=== PATIENT | female | born 2005 | race Caucasian/White ===

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

== ENCOUNTER 2024-06-22 06:08 | Emergency (ER) | payer OTHER, SELFPAY ==
--- NOTE | ~2024-06-22 | XR_ITS ---
Clinical Indication: Cough PA and lateral views of the chest: Comparison: None Findings: The lungs are clear, without evidence of focal consolidation or pleural effusion. Cardiome diastinal silhouette is within normal limits. Bones and soft tissues are unremarkable. Impression: Normal chest. Reviewed, dictated and finalized at location . NCIAL SERVICES OFFICER Impression: Normal chest.
--- OUTSIDE RECORDS SUMMARY | 2024-06-22 06:10 | XMS_ITS | Clinical Summary ---
Author Organization [facility] [employer] Address [address] [place] [address] Care Team Providers Care Watch Dial Maker Name Role Phone Snow Summers MD Unavailable Fatemeh Medina MD Primary Care Provider [phone] Source Comments [facility] [employer],non-owned Affiliates and Associated Physician Practices is amultiple site organization consisting of ambulatory clinics and hospital sitesin [place], [place], [place] and [place]. This disclosure is being madepursuant to the Care Everywhere program and may not contain all information available regarding this patient. Last updated 18.[facility] [employer] Allergies No known active allergies Medications Be aware that medications may not be up to date on this document. Always verify current medications with the patient. No known medications Active Problems No known active problems Social History Tobacco Use Types Packs/Day Years Used Date Smoking Tobacco: Never Assessed Sex and Gender Information Value Date Recorded Sex Assigned at Not on file Gender Identity Not on file Sexual Orientation Not on file Last Filed Vital Signs Vital Sign Reading Time Taken Comments Blood Pressure 98/60 06/17/2020 10:06 AM SENIOR APPLICATION SOFTWARE ENGINEER Pulse 98 06/17/2020 10:06 AM SENIOR APPLICATION SOFTWARE ENGINEER Temperature 36.9 ??C (98.4 ??F) 06/17/2020 10:[address] Respiratory Rate 16 06/17/2020 10:06 AM SENIOR APPLICATION SOFTWARE ENGINEER Oxygen Saturation 100% 06/17/2020 10:06 AM SENIOR APPLICATION SOFTWARE ENGINEER Inhaled Oxygen Concentration - - Weight 53.5 kg (118 lb) 06/17/2020 10:06 AM SENIOR APPLICATION SOFTWARE ENGINEER Height 165.1 cm (5' 5 ) 06/17/2020 10:06 AM SENIOR APPLICATION SOFTWARE ENGINEER Body Mass Index 19.64 06/17/2020 10:06 AM SENIOR APPLICATION SOFTWARE ENGINEER Body Mass Index Percentile 40.51% 06/17/2020 10: 06 AM SENIOR APPLICATION SOFTWARE ENGINEER Growth Chart: CDC (Girls, 2- 20 Years) Plan of Treatment Upcoming Encounters Date Type Department Care Team (Deana st Contact Info) Description 07/08/2024 8:20 AM SENIOR APPLICATION SOFTWARE ENGINEER Office Visit [facility] - Pediatrics [address] [place] [address] Fatemeh Medina MD [address] [facility] [facility] [address] [place] [address] Health Maintenance Due Date Last Done Comments HIV SCREENING 08/31/2019 HPV VACCINE (1 - 3-dose series) 08/31/2019 CHLAMYDIA/GONORRHEA SCREENING 2020 MENINGOCOCCAL (Group B) VACC INE (1 of 2 - Standard) 2020 HEPATITIS C SCREENING 08/26/2022 DTAP/TDAP/TD VACCINES (1 - Tdap) 08/31/2023 HEPATITIS B VACCINE (1 of 3 - 19+ 3-dose series) 08/31/2023 COVID-19 VACCINE (1 - 2023-2 5 season) 2024 INFLUENZA VACCINE (#1) 2024 DEPRESSION SCREENING 05/20/2024 ZOSTER VACCINE (1 of 2) 2054 HIB VACCINE Aged Out No longer eligi ble based on patient's age to complete this topic MENINGOCOCCAL VACCINE Aged Out No howard juan diego eligible based on patient's age to complete this topic PNEUMOCOCCAL VACCINE Aged Out No long er eligible based on patient's age to complete this topic Care Teams Watch Dial Maker Relationship Specialty Start Date End Date Snow Summers MD PCP - Pediatrics 05/05/09 Fatemeh Medina MD PCP - General Pediatrics 11/19/13
--- OUTSIDE RECORDS SUMMARY | 2024-06-22 06:10 | XMS_ITS | Referral Summary ---
Author Organization [facility] [employer] Address [address] [place] [address] Care Team Providers Care Event Producer Name Role Phone Snow Summers MD Unavailable Fatemeh Medina MD Primary Care Provider [phone] Source Comments [facility],non-owned Affiliates and Associated Physician Practices is amultiple site organization consisting of ambulatory clinics and hospital sitesin [place], [place], [place] and [place]. This disclosure is being madepursuant to the Care Everywhere program and may not contain all information available regarding this patient. Last updated 18.[facility] Allergies No known active allergies Medications Be [...] Comments Blood Pressure 98/60 06/17/2020 10:06 AM ASSEMBLY LINE INSPECTOR Pulse 98 06/17/2020 10:06 AM ASSEMBLY LINE INSPECTOR Temperature 36.9 ??C (98.4 ??F) 06/17/2020 10:[address] Respiratory Rate 16 06/17/2020 10:06 AM ASSEMBLY LINE INSPECTOR Oxygen Saturation 100% 06/17/2020 10:06 AM ASSEMBLY LINE INSPECTOR Inhaled Oxygen Concentration - - Weight 53.5 kg (118 lb) 06/17/2020 10:06 AM ASSEMBLY LINE INSPECTOR Height 165.1 cm (5' 5 ) 06/17/2020 10:06 AM ASSEMBLY LINE INSPECTOR Body Mass Index 19.64 06/17/2020 10:06 AM ASSEMBLY LINE INSPECTOR Body Mass Index Percentile 40.51% 06/17/2020 10: 06 AM ASSEMBLY LINE INSPECTOR Growth Chart: CDC (Girls, 2- 20 Years) Plan of Treatment Upcoming Encounters Date Type Department Care Team (Late st Contact Info) Description 07/08/2024 8:20 AM ASSEMBLY LINE INSPECTOR Office Visit [facility] - Pediatrics [address] [place] [address] Fatemeh Medina MD [address] [facility] [address] [place] [address] Care Teams Event Producer Relationship Specialty Start Date End Date Snow Summers MD PCP - Pediatrics 05/05/09 Fatemeh Medina MD PCP - General Pediatrics 11/19/13
--- OUTSIDE RECORDS SUMMARY | 2024-06-22 06:10 | XMS_ITS | Patient Health Summary ---
Author Organization [facility] Address [address] [place] [address] Care Team Providers Care Dispatch Officer Name Role Phone Snow Summers MD Unavailable Fatemeh Medina MD Primary Care Provider Note from [facility],non-owned Affiliates and Associated Physician Practices is amultiple site organization consisting of ambulatory clinics and hospital sitesin [place], [place], [place] and [place]. This disclosure is being madepursuant to the Care Everywhere program and may not contain all information available regarding this patient. Last updated 18.[facility] [employer] Allergies No known active allergies Medications Be [...] Comments Blood Pressure 98/60 06/17/2020 10:06 AM MANAGER INVENTORY CONTROL Pulse 98 06/17/2020 10:06 AM MANAGER INVENTORY CONTROL Temperature 36.9 ??C (98.4 ??F) 06/17/2020 10:[address] Respiratory Rate 16 06/17/2020 10:06 AM MANAGER INVENTORY CONTROL Oxygen Saturation 100% 06/17/2020 10:06 AM MANAGER INVENTORY CONTROL Inhaled Oxygen Concentration - - Weight 53.5 kg (118 lb) 06/17/2020 10:06 AM MANAGER INVENTORY CONTROL Height 165.1 cm (5' 5 ) 06/17/2020 10:06 AM MANAGER INVENTORY CONTROL Body Mass Index 19.64 06/17/2020 10:06 AM MANAGER INVENTORY CONTROL Body Mass Index Percentile 40.51% 06/17/2020 10: 06 AM MANAGER INVENTORY CONTROL Growth Chart: CDC (Girls, 2- 20 Years) Procedures * STREP A SCREEN - POINT OF CARE (AMB) STL(Performed 06/17/2020) Performed for Strep throat * GENA-RIDDLE VIRUS ANTIBODY PANEL(Performed 12/25/2013) Performed for Pharyngitis, acute, Fever presenting with conditions classified elsewhere * MONONUCLEOSIS SCREEN(Performed 12/25/2013) Performed for Pharyngitis, acute, Fever presenting with conditions classified elsewhere * URINALYSIS - POINT OF CARE(Performed 11/16/2010) Performed for Abdominal pain, other specified site * INFLUENZA A+B - POINT OF CARE (AMB)(Performed 07/08/2010) Performed for Influenza * URINALYSIS - POINT OF CARE(Performed 11/14/2009) Performed for Abdominal Pain, Unspecified Site, Atopic Dermatitis * CULTURE AEROBIC+GRAM STAIN(Performed 10/21/2009) Performed for Acute Pharyngitis * STREP A SCREEN - POINT OF CARE (AMB)(Performed 10/21/2009) Performed for Acute Pharyngitis Results * (ABNORMAL) STREP A SCREEN - POINT OF CARE (AMB) STL (06/17/2020 10:08 AM MANAGER INVENTORY CONTROL) Pathologist [facility] Strep A Rapid POCT Positive(A) Negative [facility] [address] Strep A Internal Control Present [facility] [address] Lot # [id number] [facility] Expiration Date 05-19-[address] [facility] [address] Throat ENTIRE THROAT (SURFACE REGION OF NECK) / Unknown 06/17/2020 10:08 AM MANAGER INVENTORY CONTROL Latisha Baldwin CATERING CHEF-EXECUTIVE RECEPTIONIST LAB - POINT OF CARE ORDERABLES [facility] [address] [place] [address] * MONONUCLEOSIS SCREEN (12/25/2013 11:30 AM CDT) Mononucleosis Test Qualitative Negative Negative [facility] INSURANCE BILL Comment: EBV SENT The sensitivity of Heterophile antibody testing is 80-90%. Gena Riddle IgM testing offers higher sensitivity. Blood specimen (specimen) BLOOD SPECIMEN / Unknown 12/25/2013 11:30 AM CDT 12/25/2013 2:31 PM CDT Narrative Resulting Agency Comment [facility] [address] [facility] ??[facility] [id number] Fatemeh Medina MD LAB - CHEMISTRY MAIA BATISTA [facility] INSURANCE BILL * (ABNORMAL) GENA-BAR VIRUS PANEL (12/25/2013 11:30 AM CDT) Gena-Riddle Viral Capsid Antigen Antibody IgM <36.0 0.0 - 35.9 U/mL [facility] INSURANCE BILL Comment: ?Negative ?<36.0 ?Equivocal 36.0 - 43.9 ?Positive ?>43.9 Gena-Riddle Virus Early Antigen Antibody IgG 10.2(H) 0.0 - 8.9 U/mL [facility] INSURANCE BILL Comment: A second sample should be collected and tested no less than 2-4 weeks. ?Negative ?< 9.0 ?Equivocal ??9.0 - 10.9 ?Positive ?>10.9 Gena-Riddle Viral Capsid Antigen Antibody IgG 195.0(H) 0.0 - 17.9 U/mL [facility] INSURANCE BILL Comment: ?Negative ?<18.0 ?Equivocal 18.0 - 21.9 ?Positive ?>21.9 Gena-Riddle Virus Antibody IgG Nuclear Antigen 300.0(H) 0.0 - 17.9 U/mL [facility] INSURANCE BILL Comment: ?Negative ?<18.0 ?Equivocal 18.0 - 21.9 ?Positive ?>21.9 Interpretation [facility] INSURANCE BILL Comment: ?EBV Interpretation Chart ?. ? Interpretation ?? EBV-IgM ??VCA-IgG ??EBNA-IgG ??EA(D)-IgG ?. ? EBV Seronegative ?- ?- ? - ?- ? Early Phase ? + ?- ? - ?- ? Acute Primary ? + ?+ ? - ? +or- ? Infection ? Convalescence/Past ??- ?+ ? + ? +or- ? Infection ? Reactivated ?+or- ?+ ? + ?+ ? Infection ?+ Antibody Present ?- Antibody Absent Blood specimen (specimen) BLOOD SPECIMEN / Unknown 12/25/2013 11:30 AM CDT 12/25/2013 5:35 PM CDT Narrative Resulting Agency Comment [facility] [address] ??[facility] [phone] Fatemeh Medina MD LAB - CHEMISTRY MAIA BATISTA [facility] Organization Address City/State/ZIP Co de Phone Number [facility] INSURANCE BILL * URINALYSIS - POINT OF CARE (11/16/2010 10:30 AM CDT) Only the most recent of2 resultswithin the time period is included. Clarity UA POCT clear Color UA POCT marissa Leukocyte UA neg Negative Nitrite UA POCT neg Negative Urobilinogen UA POCT neg 0.1 - 1.0 EU/dL Protein UA POCT neg Negative pH UA 5 5.0 - 8.0 pH units Blood UA neg Negative Specific [place] UA POCT 1.020 1.002 - 1.030 Ketone UA neg Negative Bilirubin UA POCT neg Negative Glucose UA neg Negative Urine specimen (specimen) URINE / Unknown 11/16/2010 10:30 AM CDT Snow Summers MD LAB - POINT OF CARE ORDERABLES * (ABNORMAL) INFLUENZA A+B - POINT OF CARE (07/08/2010 11:15 AM MANAGER INVENTORY CONTROL) Influenza A Antigen Rapid POS Negative Influenza B Antigen Rapid NEG Negative Influenza Internal Control NEGATIVE - POSITIVE Influenza Lot Number Influenza Expiration Date SPECIMEN FROM NASOPHARYNGEAL STRUCTURE / Unknown 07/08/2010 11:15 AM MANAGER INVENTORY CONTROL Fatemeh Medina MD LAB - POINT OF CARE ORDERABLES * CULTURE ROUTINE (10/21/2009 11:26 AM CDT) Aerobic Bacterial Culture Final report [facility] ACCOUNT BILL Result 1 [facility] ACCOUNT BILL Comment:Routine respiratory eric ENTIRE PHARYNX / Unknown 10/21/2009 11:26 AM CDT 10/21/2009 10:02 PM CDT Narrative Resulting Agency Comment [facility] [address] [facility] ??[facility] [id number] Snow Summers MD LAB - MICROBIOLOGY O RDERABLES [facility] ACCOUNT BILL * STREP A SCREEN - POINT OF CARE (AMB) (10/21/2009 11:01 AM CDT) Strep A Rapid POCT negative NEGATIVE - POSITIVE Strep A Internal Control NEGATIVE - POSITIVE ENTIRE THROAT (SURFACE REGION OF NECK) / Unknown Snow Summers MD LAB - POINT OF CARE ORDERABLES Care Teams Dispatch Officer Relationship Specialty Start Date End Date Snow Summers MD PCP - Pediatrics 05/05/09 Fatemeh Medina MD PCP - General Pediatrics 11/19/13
--- OUTSIDE RECORDS SUMMARY | 2024-06-22 06:10 | XMS_ITS | Clinical Summary ---
Author Organization [facility] Address [address] [place] [address] Care Team Providers Care Forest Engineer Name Role Phone Unavailable Primary Care Provider Unavailabl e Medications ciprofloxacin HCl (CILOXAN) 0.3 % solution Instill 1 drop into right eye three times a day 5 mL 04/27/2022 12:17 PM TALENT COORDINATOR 04/27/2022 Active methylPREDNISol one (MEDROL DOSPACK) 4 mg Tablets, Dose Pack TAKE DIRECTED WITH FOOD. 21 Tablet 02/26/2023 7:49 PM CDT 02/26/2023 Active albuterol sulfate HFA 90 mcg/actuation aerosol inhaler INHALE 2 PUFFS BY MOUTH EVERY 4 HOURS NEEDED 8.5 Gram 03/04/2023 7:27 PM CDT 02/26/2023 Active Social History Tobacco Use Types Packs/Day Years Used Date Smoking Tobacco: Never Assessed Adolescent Education Answer Date Record ed Getting School Help Needed Not on file 12/21 Comments Unknown Sex and Gender Information Value Date Recorded Sex Assigned at Not on file Legal Sex Female 4:39 PM TALENT COORDINATOR Gender Identity Not on file Sexual Orientation Not on file Plan of Treatment Health Maintenance Due Date Last Done Comments CHLAMYDIA SCREENING (ANNUAL) 11-24 YEARS 08/31/2015 HPV VACCINES (1 - 3-dose series) 08/31/2019 DTAP/TDAP/TD VACCINES (1 - Tdap) 08/31/2023 HEPATITIS B VACCINES (1 of 3 - 19+ 3-dose series) 08/31/2023 INFLUENZA VACCINE (#1) 2023 PNEUMOCOCCAL VACCINE 0-64 YEARS Aged Out No longer eligible based on patient's age to complete this topic Insurance RX [employer] Commercial RX [employer] Member Subscriber Plan / Payer (Ef fective for All Dates) Name:Thea Pang Relation to Subscriber:Child Payer ID:Not on file Type:RX [employer] Address: [address]
--- NOTE | 2024-06-22 06:33 | PC.NURSE ---
Mother at bedside when this RN explained that a COVID/flu PCR test was ordered due to patient's symptoms. Mother states she does not wish to have that test performed because we want to know if there is mold or pneumonia in her lungs. . Patient agrees with mothers statement and refuses swab.
--- NOTE | 2024-06-22 07:38 | PC.NURSE ---
Patient refused covid/flu swab stating Im not comfortable putting things in my nose and patient attempted to hand this RN a paper towel after blowing her nose. This RN informed patient that using the swab in her nose was the only way to test and I was unable to use the used paper towel. Provider aware.
--- OUTSIDE RECORDS SUMMARY | 2024-06-22 07:39 | XMS_ITS | Clinical Summary ---
Author Organization [facility] Address [address] [place] [address] Care Team Providers Care Self Contained Behavior Unit Teacher Name Role Phone Unavailable Primary Care Provider Unavailabl e Medications ciprofloxacin HCl (CILOXAN) 0.3 % solution Instill 1 drop into right eye three times a day 5 mL 04/27/2022 12:17 PM PLASMA CENTER TECHNICIAN 04/27/2022 Active methylPREDNISol one (MEDROL DOSPACK) 4 [...] on file Legal Sex Female 4:39 PM PLASMA CENTER TECHNICIAN Gender Identity Not on file Sexual Orientation [...] age to complete this topic Insurance RX [employer] Commercial RX [employer] RX Member Subscriber Plan / Payer (Ef fective for All Dates) Name:Thea Pang Relation to Subscriber:Child Payer ID:Not on file Type:RX [employer] Address: [address]
--- OUTSIDE RECORDS SUMMARY | 2024-06-22 07:40 | XMS_ITS | Referral Summary ---
Author Organization [facility] [employer] Address [address] [place] [address] Care Team Providers Care Cleaning Specialist Name Role Phone Snow Summers MD Unavailable Fatemeh Medina MD Primary Care Provider [phone] Source Comments [facility],non-owned Affiliates and Associated Physician Practices is amultiple site organization consisting of ambulatory clinics and hospital sitesin [place], [place], [place] and [place]. This disclosure is being madepursuant to the Care Everywhere program and may not contain all information available regarding this patient. Last updated 18.[facility] [employer] Allergies No known active allergies Medications Be [...] Comments Blood Pressure 98/60 06/17/2020 10:06 AM AUTOMOBILE MECHANIC SUPERVISOR Pulse 98 06/17/2020 10:06 AM AUTOMOBILE MECHANIC SUPERVISOR Temperature 36.9 ??C (98.4 ??F) 06/17/2020 10:[address] Respiratory Rate 16 06/17/2020 10:06 AM AUTOMOBILE MECHANIC SUPERVISOR Oxygen Saturation 100% 06/17/2020 10:06 AM AUTOMOBILE MECHANIC SUPERVISOR Inhaled Oxygen Concentration - - Weight 53.5 kg (118 lb) 06/17/2020 10:06 AM AUTOMOBILE MECHANIC SUPERVISOR Height 165.1 cm (5' 5 ) 06/17/2020 10:06 AM AUTOMOBILE MECHANIC SUPERVISOR Body Mass Index 19.64 06/17/2020 10:06 AM AUTOMOBILE MECHANIC SUPERVISOR Body Mass Index Percentile 40.51% 06/17/2020 10: 06 AM AUTOMOBILE MECHANIC SUPERVISOR Growth Chart: CDC (Girls, 2- 20 Years) Plan of Treatment Upcoming Encounters Date Type Department Care Team (Late st Contact Info) Description 07/08/2024 8:20 AM AUTOMOBILE MECHANIC SUPERVISOR Office Visit [facility] - Pediatrics [address] [place] [address] Fatemeh Medina MD [address] [facility] [address] [place] [address] Care Teams Cleaning Specialist Relationship Specialty Start Date End Date Snow Summers MD PCP - Pediatrics 05/05/09 Fatemeh Medina MD PCP - General Pediatrics 11/19/13
--- OUTSIDE RECORDS SUMMARY | 2024-06-22 07:40 | XMS_ITS | Patient Health Summary ---
Author Organization [facility] Address [address] [place] [address] Care Team Providers Care Slope Runner Name Role Phone Snow Summers MD Unavailable Fatemeh Medina MD Primary Care Provider Note from [facility],non-owned Affiliates and Associated Physician Practices is amultiple site organization consisting of ambulatory clinics and hospital sitesin [place], [place], [place] and [place]. This disclosure is being madepursuant to the Care Everywhere program and may not contain all information available regarding this patient. Last updated 18.[facility] [employer] Allergies No known active allergies Medications Be [...] Comments Blood Pressure 98/60 06/17/2020 10:06 AM CLINICAL MEDICAL ASSISTANT Pulse 98 06/17/2020 10:06 AM CLINICAL MEDICAL ASSISTANT Temperature 36.9 ??C (98.4 ??F) 06/17/2020 10:[address] Respiratory Rate 16 06/17/2020 10:06 AM CLINICAL MEDICAL ASSISTANT Oxygen Saturation 100% 06/17/2020 10:06 AM CLINICAL MEDICAL ASSISTANT Inhaled Oxygen Concentration - - Weight 53.5 kg (118 lb) 06/17/2020 10:06 AM CLINICAL MEDICAL ASSISTANT Height 165.1 cm (5' 5 ) 06/17/2020 10:06 AM CLINICAL MEDICAL ASSISTANT Body Mass Index 19.64 06/17/2020 10:06 AM CLINICAL MEDICAL ASSISTANT Body Mass Index Percentile 40.51% 06/17/2020 10: 06 AM CLINICAL MEDICAL ASSISTANT Growth Chart: CDC (Girls, 2- 20 Years) [...] OF CARE (AMB) STL (06/17/2020 10:08 AM CLINICAL MEDICAL ASSISTANT) Pathologist [facility] Strep A Rapid POCT Positive(A) Negative [facility] [address] [address] Strep A Internal Control Present [facility] [address] Lot # [id number] [facility] [address] Expiration Date 05-19-21 [facility] [address] Throat ENTIRE THROAT (SURFACE REGION OF NECK) / Unknown 06/17/2020 10:08 AM CLINICAL MEDICAL ASSISTANT Latisha Baldwin CLINICAL INFORMATICS STRATEGIST-TECHNICAL PRODUCER LAB - POINT OF CARE ORDERABLES [facility] [address] [place] [address] * MONONUCLEOSIS SCREEN (12/25/2013 11:30 AM CDT) Mononucleosis Test Qualitative Negative Negative [facility] INSURANCE BILL Comment: EBV SENT The sensitivity of Heterophile antibody testing is 80-90%. Gena Riddle IgM testing offers higher sensitivity. Blood specimen (specimen) BLOOD SPECIMEN / Unknown 12/25/2013 11:30 AM CDT 12/25/2013 2:31 PM CDT Narrative Resulting Agency Comment [facility] [address] [facility] ??[facility] [id number] Fatemeh Medina MD LAB - CHEMISTRY MAIA [...] PM CDT Narrative Resulting Agency Comment [facility] [address] ??[facility] [phone] Fatemeh Medina MD LAB - CHEMISTRY MAIA BATISTA [facility] Organization Address City/State/ZIP Co de Phone Number [...] pH units Blood UA neg Negative Specific [place] UA POCT 1.020 1.002 - 1.030 Ketone UA neg Negative Bilirubin UA POCT neg Negative Glucose UA neg Negative Urine specimen (specimen) URINE / Unknown 11/16/2010 10:30 AM CDT Snow Summers MD LAB - POINT OF CARE ORDERABLES * (ABNORMAL) INFLUENZA A+B - POINT OF CARE (07/08/2010 11:15 AM CLINICAL MEDICAL ASSISTANT) Influenza A Antigen Rapid POS Negative Influenza B Antigen Rapid NEG Negative Influenza Internal Control NEGATIVE - POSITIVE Influenza Lot Number Influenza Expiration Date SPECIMEN FROM NASOPHARYNGEAL STRUCTURE / Unknown 07/08/2010 11:15 AM CLINICAL MEDICAL ASSISTANT Fatemeh Medina MD LAB - POINT OF CARE ORDERABLES * CULTURE ROUTINE (10/21/2009 11:26 AM CDT) Aerobic Bacterial Culture Final report [facility] ACCOUNT BILL Result 1 [facility] ACCOUNT BILL Comment:Routine respiratory eric ENTIRE PHARYNX / Unknown 10/21/2009 11:26 AM CDT 10/21/2009 10:02 PM CDT Narrative Resulting Agency Comment [facility] [address] [facility] ??[facility] [phone] Snow Summers MD LAB - MICROBIOLOGY O RDERABLES [facility] ACCOUNT BILL * STREP A SCREEN - POINT OF CARE (AMB) (10/21/2009 11:01 AM CDT) Strep A Rapid POCT negative NEGATIVE - POSITIVE Strep A Internal Control NEGATIVE - POSITIVE ENTIRE THROAT (SURFACE REGION OF NECK) / Unknown Snow Summers MD LAB - POINT OF CARE ORDERABLES Care Teams Slope Runner Relationship Specialty Start Date End Date Snow Summers MD PCP - Pediatrics 05/05/09 Fatemeh Medina MD PCP - General Pediatrics 11/19/13
--- OUTSIDE RECORDS SUMMARY | 2024-06-22 07:40 | XMS_ITS | Clinical Summary ---
Author Organization [facility] Address [address] [place] [address] Care Team Providers Care Sack Filler Name Role Phone Snow Summers MD Unavailable Fatemeh Medina MD Primary Care Provider [phone] Source Comments [facility],non-owned Affiliates and Associated Physician Practices is amultiple site organization consisting of ambulatory clinics and hospital sitesin [place], [place], [place] and [place]. This disclosure is being madepursuant to the Care Everywhere program and may not contain all information available regarding this patient. Last updated 18.[facility] Allergies No known active allergies Medications Be [...] Comments Blood Pressure 98/60 06/17/2020 10:06 AM PATIENT RELATIONS SPECIALIST Pulse 98 06/17/2020 10:06 AM PATIENT RELATIONS SPECIALIST Temperature 36.9 ??C (98.4 ??F) 06/17/2020 10:[address] Respiratory Rate 16 06/17/2020 10:06 AM PATIENT RELATIONS SPECIALIST Oxygen Saturation 100% 06/17/2020 10:06 AM PATIENT RELATIONS SPECIALIST Inhaled Oxygen Concentration - - Weight 53.5 kg (118 lb) 06/17/2020 10:06 AM PATIENT RELATIONS SPECIALIST Height 165.1 cm (5' 5 ) 06/17/2020 10:06 AM PATIENT RELATIONS SPECIALIST Body Mass Index 19.64 06/17/2020 10:06 AM PATIENT RELATIONS SPECIALIST Body Mass Index Percentile 40.51% 06/17/2020 10: 06 AM PATIENT RELATIONS SPECIALIST Growth Chart: CDC (Girls, 2- 20 Years) Plan of Treatment Upcoming Encounters Date Type Department Care Team (Deana st Contact Info) Description 07/08/2024 8:20 AM PATIENT RELATIONS SPECIALIST Office Visit [facility] - Pediatrics [address] [place] [address] Fatemeh Medina MD [address] [facility] [address] [place] [address] Health Maintenance Due Date Last [...] age to complete this topic Care Teams Sack Filler Relationship Specialty Start Date End Date Snow Summers MD PCP - Pediatrics 05/05/09 Fatemeh Medina MD PCP - General Pediatrics 11/19/13
--- NOTE | 2024-06-22 07:43 | ED_ITS ---
HPI - General Adult General Chief complaint: Upper Respiratory Infection Stated complaint: cleaned a moldy cooler at work, now flu like sympt Time Seen by Provider: 06/22/24 07:10 Source: patient and family Mode of arrival: ambulatory Limitations: no limitations History of Present Illness HPI narrative: 18-year-old otherwise healthy male brought in by mom with the complaints of cough, congestion, not feeling well for past few days. Patient states that she was cleaning the refrigerator which had mold. She thinks she is having mold infection . She denies any shortness of breath or chest pain Onset (ago): day(s) (3) Location: chest Severity: mild Relieving factors: none Exacerbating factors: none Associated symptoms: denies other symptoms Treatments prior to arrival: none Review of Systems Review of Systems: All systems reviewed & are unremarkable except as noted in HPI and below Constitutional: Constitutional: Reports no additional constitutional complaints Eyes: Eyes: Reports no additional eye complaints ENT: Reports system reviewed and no additional complaints, except as documented Cardiovascular: Cardiovascular: Reports no additional cardiovascular compl aints Respiratory: Respiratory: Reports as per HPI and Reports no additional respiratory complaints Gastrointestinal: Gastrointestinal: Reports no additional gastrointestinal complaints Musculoskeletal: Musculoskeletal: Reports no additional musculoskeletal complaints Neurologic: Reports system reviewed and no additional complaints, except as documented Psychiatric: Psychiatric: Reports no additional psychiatric complaints Exam Narrative: GENERAL: Well-appearing, well-nourished, and in no acute distress. HEAD: Normocephalic, atraumatic. EYES: PERRLA and EOMI. ENT: Nares clear, Mucous membranes moist. NECK: Supple. CHEST: Clear to auscultation. No respiratory distress. HEART: Regular rate and rhythm. No murmur heard. Normal peripheral pulses. EXTREMITIES: Normal range of motion. No edema. SKIN: Warm, dry, no rash. NEURO: No focal deficits. Alert and oriented x3. PSYCH: Normal mood and affect. Course Course Emergency Course: Patient declined the COVID and influenza screen. She states that she does not like anything going into her nose. I advised her to follow-up with her primary doctor or non destructive testing engineer to see if she has more exposure and there is no current test that I could do in the ER to tele that she has mold. She understood. I did inform her about the chest x-ray findings. Medical Decision Making Differential Diagnosis Differential Diagnosis: Viral syndrome, toxic exposure, pneumonia Imaging Data Radiologist's impression: ITS Impressions Chest X-Ray 06/22/24 07:04 Impression: Normal chest. Discharge Plan Discharge Clinical Impression: Upper respiratory infection Qualifiers: URI type: unspecified URI Qualified Code(s): J06.9 - Acute upper respiratory infection, unspecified Patient Disposition: Home, Self-Care Condition: Stable Instructions: Antibiotic Form Patient Language: Egyptian Follow-up/Referrals: Marleny Rodriguez MD [Physician] - Ranjeet Rios MD [Physician] - Time of Disposition: 07:49
[2024-06-22 07:56] VITALS: BP 127/69; PULSE 88; RESP 18; TEMP 36.6; O2SAT 99
== END 2024-06-22 07:57 | disposition home or self-care (01) ==
PROVIDERS: Emergency Provider Family Medicine
DX: J06.9 Acute upper respiratory infection, unspecified (principal)
CPT/HCPCS: 71046; 99283